=== PATIENT | male | born 1950 | race Caucasian/White ===

== ENCOUNTER 2016-05-07 08:00 | Inpatient (IN) | payer MEDICARE ==
[~2016-05-07] VITALS: Ht 165.1 cm; Wt 99.8 kg
[2016-05-07 09:11] LABS: RED BLOOD COUNT 5.85 M/UL (4.20-5.50); WHITE BLOOD COUNT 14.2 K/UL (4.5-11.0)
[2016-05-07 09:20] LABS: BUN/CREATININE RATIO 24 (0-10)
[2016-05-07] MEDS ORDERED: PRADAXA150 MG PO (19:42)
[2016-05-07] MEDS ORDERED: NEURONTIN 100100 MG PO (19:43)
[2016-05-07] MEDS ORDERED: SIMVASTATIN80 MG PO (19:43)
[2016-05-07] MEDS ORDERED: LOPRESSOR 50 MG50 MG PO (19:43)
[2016-05-07] MEDS ORDERED: ASPIR-LOW81 MG PO (19:44)
[2016-05-07] MEDS ORDERED: SOTALOL120 MG PO (19:44)
[2016-05-07] MEDS ORDERED: FISH OIL 1,0001 EACH PO (19:44)
[2016-05-07] MEDS ORDERED: TRAZODONE HCL50 MG PO (19:45)
[2016-05-07] MEDS ORDERED: ISOSORBIDE MON120 MG PO (19:45)
[2016-05-07] MEDS ORDERED: RANITIDINE HCL150 M1 PO (19:45)
[2016-05-07] MEDS ORDERED: VALSARTAN80 MG PO (19:46)
[2016-05-07] MEDS ORDERED: OTC LAXATIVE (19:46)
[2016-05-07] MEDS ORDERED: PLAVIX 75 MG TA75 MG PO (19:47)
[2016-05-07] MEDS ORDERED: ZYLOPRIM 100 M100 MG PO (19:47)
[2016-05-07] MEDS ORDERED: HYDROCHLOROTHIA25 MG PO (19:47)
[2016-05-07] MEDS ORDERED: LASIX 40 MG TAB40 MG PO (19:48)
[2016-05-07] MEDS ORDERED: K-DUR TAB 20 M20 MEQ PO (19:48)
[2016-05-07] MEDS ORDERED: NIACIN500 MG PO (19:48)
[2016-05-08 06:00] LABS: BUN/CREATININE RATIO 28 (0-10)
[2016-05-08 06:02] LABS: WHITE BLOOD COUNT 16.7 K/UL (4.5-11.0)
[2016-05-08 06:17] LABS: HEMOGLOBIN 16.3 gm/dl (14.0-17.5); RED BLOOD COUNT 5.05 M/UL (4.20-5.50)
[2016-05-09 04:52] LABS: HEMOGLOBIN 16.2 gm/dl (14.0-17.5); RED BLOOD COUNT 5.09 M/UL (4.20-5.50); WHITE BLOOD COUNT 15.4 K/UL (4.5-11.0)
[2016-05-09 05:22] LABS: BUN/CREATININE RATIO 27 (0-10)
[2016-05-09] MEDS ORDERED: BENADRYL 25MG C25 MG PO (06:33)
[2016-05-09] MEDS ORDERED: NATURAL SENNA8.6 MG PO (06:34)
[2016-05-10 04:41] LABS: HEMOGLOBIN 15.7 gm/dl (14.0-17.5); RED BLOOD COUNT 4.92 M/UL (4.20-5.50)
[2016-05-10 04:44] LABS: WHITE BLOOD COUNT 11.4 K/UL (4.5-11.0)
[2016-05-10 05:00] LABS: BUN/CREATININE RATIO 34 (0-10)
[2016-05-12] MEDS ORDERED: IPRAT-ALBUT 0.5-3 ML INH (14:03)
[2016-05-12] MEDS ORDERED: PREDNISONE 10 M10 MG PO ×4 (14:04→14:08)
[2016-05-12] MEDS ORDERED: AUGMENTIN 875-1 EACH PO (14:04)
== END 2016-05-12 15:24 | disposition home or self-care (01) | DRG 871 ==
LOC: ER1 08:00 → ZEROF 13:42 → MED SURG 4 13:42
PROVIDERS: Emergency Medicine; ADMIT Internal Medicine
DX: A41.9 Sepsis, unspecified organism (principal); J18.9 Pneumonia, unspecified organism; J96.01 Acute respiratory failure with hypoxia; B37.1 Pulmonary candidiasis; I50.32 Chronic diastolic (congestive) heart failure; R04.2 Hemoptysis; I47.2 Ventricular tachycardia; D75.1 Secondary polycythemia; I11.0 Hypertensive heart disease with heart failure; E66.01 Morbid (severe) obesity due to excess calories; Z68.36 Body mass index [BMI] 36.0-36.9, adult; I25.10 Atherosclerotic heart disease of native coronary artery without angina pectoris; K13.70 Unspecified lesions of oral mucosa; F17.220 Nicotine dependence, chewing tobacco, uncomplicated; I73.9 Peripheral vascular disease, unspecified; F17.210 Nicotine dependence, cigarettes, uncomplicated; D69.6 Thrombocytopenia, unspecified; J44.9 Chronic obstructive pulmonary disease, unspecified; I49.5 Sick sinus syndrome; I48.0 Paroxysmal atrial fibrillation; E78.5 Hyperlipidemia, unspecified; K21.9 Gastro-esophageal reflux disease without esophagitis; Z95.1 Presence of aortocoronary bypass graft; Z95.0 Presence of cardiac pacemaker; Z79.01 Long term (current) use of anticoagulants; Z85.828 Personal history of other malignant neoplasm of skin; Z86.39 Personal history of other endocrine, nutritional and metabolic disease; Z79.82 Long term (current) use of aspirin; Z79.899 Other long term (current) drug therapy; Z82.49 Family history of ischemic heart disease and other diseases of the circulatory system
CPT/HCPCS: ECHO; 36415; 36600; 71010; 71020; 80048; 80053; 82550; 82553; 82803; 82962; 83605; 83735; 83874; 83880; 84484; 85025; 85027; 85610; 85730; 87040; 87070; 87205; 87278; 93005; 93306; 94640; 94664; 96361; 96374; 96375; 99285; J0360; J0456; J0696; J1940; J2920; J2930; J7030; J7050; Q0163; Q9963

== ENCOUNTER 2020-08-02 23:46 | Inpatient (IN) | payer OTHER ==
[~2020-08-02] VITALS: Ht 165.1 cm; Wt 83.5 kg
[~2020-08-02 23:46] MED LIST: ALLERGY RELIEF10 M1 PO; ALLOPURINOL100 MG PO; ASPIR-LOW81 MG PO; ASPIRIN EC81 MG PO; ATORVASTATIN CA20 MG PO; AUGMENTIN 875-1 EACH PO; BENADRYL 25MG C25 MG PO; BETAPACE120 MG PO; CARDIZEM SR 90M90 MG PO; CEFUROXIME250 MG PO; CENTRUM SIVER PO; CLARITIN10 MG PO; COUMADIN2 MG PO; DECADRON6 MG PO; DOXYCYCLINE HY100 M2 PO; ECOTRIN81 MG PO; ENOXAPARIN100 MG/1 M SC; FENOFIBRATE48 MG PO; FISH OIL 1,0001 EACH PO; FUROSEMIDE40 MG PO; GABAPENTIN100 MG PO; HYDROCHLOROTHIA25 MG PO; HYDROCODONE-AC1 EAC1 PO; IPRAT-ALBUT 0.5-3 ML INH; ISOSORBIDE MON120 MG PO; K-DUR TAB 20 M20 MEQ PO; LASIX 40 MG TAB40 MG PO; LOPRESSOR 50 MG50 MG PO; MEDROL DOSEPAK 24 MG PO; NATURAL SENNA8.6 MG PO; NEURONTIN 100100 MG PO; NIACIN500 MG PO; NITROSTAT0.4 MG SL; NORCO 7.5-3251 EACH PO; OTC LAXATIVE; PLAVIX 75 MG TA75 MG PO; PRADAXA150 MG PO; PREDNISONE 10 M10 MG PO; PREDNISONE 20 M20 MG PO; PROAIR HFA8.5 GM INH; PROTONIX40 MG PO; RANITIDINE HCL150 M1 PO; SIMVASTATIN80 MG PO; SOTALOL120 MG PO; SPIRIVA HANDIH18 MCG INH; SYMBICORT 160-1 INHA INH; SYMBICORT 80-41 INHA INH; TESSALON PERLE100 MG PO; TRAZODONE HCL50 MG PO; TRICOR48 MG PO; VALSARTAN80 MG PO; VENTOLIN HFA 66.7 GM INH; WARFARIN SODIU2.5 MG PO; ZANTAC300 MG PO; ZYLOPRIM 100 M100 MG PO
[2020-08-03 00:13] LABS: HEMOGLOBIN 14.7 gm/dl (14.0-17.5); RED BLOOD COUNT 4.81 M/UL (4.20-5.50); WHITE BLOOD COUNT 9.2 K/UL (4.5-11.0)
[2020-08-03 00:37] LABS: BUN/CREATININE RATIO 22 (0-10)
[2020-08-03] MEDS ORDERED: LOPRESSOR50 MG PO (09:36)
[2020-08-03] MEDS ORDERED: POTASSIUM CHLO20 ME2 PO (09:37)
[2020-08-03] MEDS ORDERED: ALLERGY RELIEF10 M1 PO (09:38)
[2020-08-03] MEDS ORDERED: SYMBICORT 16010.2 GM INH (09:42)
[2020-08-03] MEDS ORDERED: ZOCOR80 MG PO (09:43)
[2020-08-03] MEDS ORDERED: CYMBALTA 30 MG30 MG PO (09:49)
[2020-08-03] MEDS ORDERED: HYDROCHLOROTHIA25 MG PO (09:50)
[2020-08-03] MEDS ORDERED: NIACIN500 M1 PO (09:52)
[2020-08-03] MEDS ORDERED: CLOPIDOGREL75 MG PO (09:53)
[2020-08-03] MEDS ORDERED: WARFARIN SODIUM2 MG PO (09:54)
[2020-08-06 06:01] LABS: RED BLOOD COUNT 4.93 M/UL (4.20-5.50); WHITE BLOOD COUNT 17.2 K/UL (4.5-11.0)
[2020-08-06 06:28] LABS: BUN/CREATININE RATIO 21 (0-10)
--- NOTE | 2020-08-08 10:50 | NUR ---
PATIENT ROOM AIR SATUARION 80%
== END 2020-08-08 14:38 | disposition home or self-care (01) | DRG 189 ==
LOC: ER1 23:46 → CDU 08-03 03:42 → M/S 08-03 03:42
PROVIDERS: Emergency Medicine; Internal Medicine; ADMIT Internal Medicine
DX: J96.22 Acute and chronic respiratory failure with hypercapnia (principal); J44.1 Chronic obstructive pulmonary disease with (acute) exacerbation; I50.32 Chronic diastolic (congestive) heart failure; I49.5 Sick sinus syndrome; I48.0 Paroxysmal atrial fibrillation; I25.10 Atherosclerotic heart disease of native coronary artery without angina pectoris; I11.0 Hypertensive heart disease with heart failure; K59.00 Constipation, unspecified; E78.5 Hyperlipidemia, unspecified; I71.4 Abdominal aortic aneurysm, without rupture; I73.9 Peripheral vascular disease, unspecified; J96.21 Acute and chronic respiratory failure with hypoxia; E66.9 Obesity, unspecified; R79.1 Abnormal coagulation profile; Z79.01 Long term (current) use of anticoagulants; Z95.1 Presence of aortocoronary bypass graft; Z99.81 Dependence on supplemental oxygen; Z95.0 Presence of cardiac pacemaker; Z83.3 Family history of diabetes mellitus; Z68.30 Body mass index [BMI] 30.0-30.9, adult
CPT/HCPCS: 0240U; 36415; 36600; 71045; 80048; 80053; 82550; 82553; 82803; 83690; 83735; 83874; 83880; 84484; 85025; 85379; 85610; 85730; 93005; 94640; 94664; 94760; 96374; 99285; A6212; C9113; J0696; J1644; J1650; J2920; J2930; Q9967

== ENCOUNTER 2021-01-14 13:49 | Emergency (ER) | payer OTHER ==
[~2021-01-14 13:49] MED LIST changes: +CLOPIDOGREL75 MG PO; +CYMBALTA 30 MG30 MG PO; +LOPRESSOR50 MG PO; +NIACIN500 M1 PO; +POTASSIUM CHLO20 ME2 PO; +SYMBICORT 16010.2 GM INH; +WARFARIN SODIUM2 MG PO; +ZOCOR80 MG PO
[2021-01-14 14:29] LABS: HEMOGLOBIN 15.3 gm/dl (14.0-17.5); RED BLOOD COUNT 4.92 M/UL (4.20-5.50); WHITE BLOOD COUNT 11.2 K/UL (4.5-11.0)
[2021-01-14 15:02] LABS: BUN/CREATININE RATIO 24 (0-10)
[2021-01-14 15:20] LABS: BORDETELLA PARAPERTUSSIS Not Detected (Not Detectd); BORDETELLA PERTUSSIS Not Detected (Not Detectd); CHLAMYDIA PNEUMONIAE Not Detected (Not Detectd); CORONAVIRUS HKU1 Not Detected (Not Detectd); CORONAVIRUS NL63 Not Detected (Not Detectd); CORONAVIRUS OC43 Not Detected (Not Detectd); CORONOAVIRUS 229E Not Detected (Not Detectd); HUMAN METAPNEUMOVIRUS Not Detected (Not Detectd); HUMAN RHINOVIRUS/ENTEROVIRUS Not Detected (Not Detectd); INFLUENZA A Not Detected (Not Detectd); INFLUENZA B Not Detected (Not Detectd); MYCOPLASMA PNEUMONIAE Not Detected (Not Detectd); PARAINFLUENZA VIRUS 1 Not Detected (Not Detectd); PARAINFLUENZA VIRUS 2 Not Detected (Not Detectd); PARAINFLUENZA VIRUS 3 Not Detected (Not Detectd); PARAINFLUENZA VIRUS 4 Not Detected (Not Detectd); RESPIRATORY SYNCYTIAL VIRUS Not Detected (Not Detectd)
[2021-01-14 17:00] LABS: SARS-CoV-2 NOT DETECTED (Not Detectd)
[2021-01-14] MEDS ORDERED: CEFUROXIME500 MG PO (17:14)
[2021-01-14] MEDS ORDERED: MEDROL4 MG PO (17:14)
== END 2021-01-14 17:50 | disposition home or self-care (01) ==
LOC: ER1 13:49
PROVIDERS: Preventive Medicine Occupational Medicine
DX: J44.1 Chronic obstructive pulmonary disease with (acute) exacerbation (principal); I25.10 Atherosclerotic heart disease of native coronary artery without angina pectoris; Z20.822 Contact with and (suspected) exposure to COVID-19
CPT/HCPCS: 36600; 70450; 71045; 80053; 81001; 82009; 82140; 82550; 82553; 82803; 82962; 83605; 83690; 83874; 83880; 84484; 85025; 85652; 86140; 87040; 87086; 87633; 93005; 96374; 96375; 99285; J0696; J2930